=== PATIENT | female | born 1995 | race American Indian/Alaskan Native ===

== ENCOUNTER 2016-08-22 13:56 | Emergency (ER) | payer BC ==
[2016-08-22 14:03] VITALS: BP 135/80
--- NOTE | 2016-08-22 14:38 | Emergency Department Report ---
Entered by GHASSAN PAZ, acting as scribe for ASHWIN RIVAS PA. Chief Complaint: Urogenital-Female Stated Complaint: STOMACH PAIN Time Seen by Provider: 08/22/16 14:11 - HPI History of Present Illness: 21 y/o female presents c/o pressure-like abd pain and vaginal spotting this morning at 0130am. Pt notes she had three positive tests. LMP 07/26/16. This is pt's first . - ROS Review of Systems: as noted in HPI - Exam Vital Signs: Vital Signs 08/22/16 13:59 Temperature 98.3 F Pulse Rate 76 Respiratory 18 Rate Blood Pressure 135/80 O2 Sat by Pulse 100 Oximetry Physical Exam: General: 21 y/o female in no acute distress. Well-developed, well-nourished. CV: Regular rate and rhythm. No murmurs rubs or gallops. Lungs: Clear to auscultation bilaterally. Abdomen: mild pelvic tenderness. No guarding or rebound tenderness. Normal bowel sounds. Mini Neuro: Alert and oriented 3. MSE screening note: Focused history and physical exam performed. Due to findings the following was ordered:UA and HCG quantitative test ED Disposition for MSE Condition: Stable This documentation as recorded by the scribe,GHASSAN PAZ,accurately reflects the service I personally performed and the decisions made by ROB singh FABIOLA N, PA.
[2016-08-22 15:07] LABS: Bilirubin,Urine NEG (Negative); Blood,Urine NEG (Negative); Ketones,Urine NEG (Negative); Leukocyte Esterase,Urine NEG (Negative); Mucus,Urine FEW /HPF; Nitrite,Urine NEG (Negative); Urobilinogen,Urine < 2.0 mg/dL (<2.0)
--- NOTE | 2016-08-22 15:33 | Emergency Department Report ---
HPI - General Chief Complaint: Urogenital-Female Time Seen by Provider: 08/22/16 14:39 - HPI HPI: 21-year-old -Polish female comes in for abdominal cramping and vaginal spotting for one day. Patient reports that she's had 3 home positive test. She reports her last menstrual period was 07/26/2016. She has no past medical history currently takes no medications has no known drug allergies. She denies any fever she admits to nausea no vomiting she admits to intermittent cramping and intermittent nausea. Last time she was on control was 2011. ED Past Medical Hx - Past Medical History Previous Medical History?: No - Surgical History Past Surgical History?: Yes Additional Surgical History: tonsillectomy - Social History Smoking Status: Never Smoker Substance Use Type: Alcohol, Marijuana - Medications Home Medications: Home Medications Medication Instructions Recorded Confirmed Last Taken Type Prednisone [predniSONE 10 mg 10 mg PO .TAPER #1 tab.ds.pk 02/10/16 Unknown Rx (6-Day Pack, 21 Tabs)] diphenhydrAMINE [Benadryl CAP] 50 mg PO QHS PRN #15 capsule 02/10/16 Unknown Rx metroNIDAZOLE [Flagyl] 500 mg PO Q12HR #14 tab 08/22/16 Unknown Rx ED Review of Systems ROS: Stated complaint: STOMACH PAIN Other details as noted in HPI Physical Exam - Physical Exam Vital Signs: Vital Signs 08/22/16 13:59 Temperature 98.3 F Pulse Rate 76 Respiratory 18 Rate Blood Pressure 135/80 O2 Sat by Pulse 100 Oximetry Physical Exam: GENERAL: Alert and oriented x3, no apparent distress, Normal Gait, atraumatic. HEAD: Head is normocephalic and a-traumatic. EYES: Extra ocular muscles are intact. Pupils are equal, round, and reactive to light and accommodation. EARS: symetrical, atraumatic, non tender, ear canal clear and moderate cerumen, tympanic membrance non inflamed. gross auditory nml bilaterally. NOSE: Nose symetrical, Nontender,Nares appeared normal. MOUTH:Mouth is well hydrated and without lesions. Tonsils nonerythematous or swollen, Uvula midline, Tongue not elevated. Mucous membranes are moist. Posterior pharynx clear, no exudate or lesions. Patent airways. NECK: Supple. Non edematous, No carotid bruits. No lymphadenopathy or thyromegaly. LUNGS: Symetrical with respiration, No wheezing, no rales or crackles, CTAB. HEART: S1, S2 present, regular rate and rhythm without murmur, no rubs, no gallops. ABDOMEN: No organomegaly was noted,Positive bowel sounds, soft, and non- distended. . Nontender to palpation on all Quadrants, NO CVA tenderness. GENITOURINARY: External genitalia without erythema, exudate or discharge. Vaginal vault is without discharge. Cervix is of normal color without lesion. Cervical os is closed. No bleeding noted. Uterus is noted to be of normal size and nontender. No cervical motion tenderness. No masses are palpated. The adnexa are without masses or tenderness. EXTREMITIES/MUSCULOSKELETAL: No cyanosis, clubbing, rash, lesions or edema. Full ROM bilaterally. UE/LE Pulses 2+ bilaterally. LE and UE 5+ strength bilaterally NEUROLOGIC: No focal Deficit, Cranial nerves II through XII are grossly intact. No loss of sensation, No facial droop, Negative rhomberg. PSYCHIATRIC: Mood is congruent with affect, denies suicidal or homicidal ideations. SKIN: Warm and dry, No lesions, No ulceration or induration present ED Course Vital Signs 08/22/16 13:59 Temperature 98.3 F Pulse Rate 76 Respiratory 18 Rate Blood Pressure 135/80 O2 Sat by Pulse 100 Oximetry Critical care attestation.: If time is entered above; I have spent that time in minutes in the direct care of this critically ill patient, excluding procedure time. ED Disposition Clinical Impression: Bacterial vaginosis Disposition: DISCHARGED TO HOME OR SELFCARE Is pt being admited?: No Does the pt Need Aspirin: No Condition: Stable Instructions: Bacterial Vaginosis (ED) Additional Instructions: Please follow up with her primary care provider if you do not have to cycle this month. You can return to the emergency room to have a repeat test. Prescriptions: metroNIDAZOLE [Flagyl] 500 mg PO Q12HR #14 tab Referrals: PRIMARY CARE, [Primary Care Provider] - 3-5 Days Forms: STI Treatment and Prevention, Work/School Release Form(ED)
[2016-08-22] MEDS ORDERED: MOTRIN PO ONE (16:33)
== END 2016-08-22 16:44 | disposition home or self-care (01) ==
LOC: ED 13:56
DX: N76.0 Acute vaginitis (principal); F12.10 Cannabis abuse, uncomplicated
CPT/HCPCS: 36415; 81001; 84702; 87210; 87591

== ENCOUNTER 2018-07-27 14:47 | Emergency (ER) | payer BC ==
--- NOTE | 2018-07-27 16:02 | Emergency Department Report ---
HPI - General Chief Complaint: Syncope Time Seen by Provider: 07/27/18 15:43 - HPI HPI: Room 7 The patient is a 23-year-old female presenting with a chief complaint of syncope. The patient states today at work she was sitting down when she began to feel lightheaded and hot. Patient was attempted to stand up but staff helped her to the ground. The patient states she was told she lost consciousness for a few minutes. Patient denies chest pain or shortness of breath. Patient just found out she was approximately one week ago but has not had care yet. Patient denies vaginal bleeding but states she's had intermittent lower abdominal pain past week. Patient was a subjective fever and nasal congestion. Patient is to call for several days has been occasionally productive of yellow or clear sputum. Location: [See above] Duration: 1 Week Quality: [See above] Severity: Moderate Modifying factors: [see above] Context: [see above] Mode of transportation: [not driving] ED Past Medical Hx - Past Medical History Previous Medical History?: No - Surgical History Additional Surgical History: tonsillectomy, herniorrhaphy - Family History Family history: no significant - Social History Smoking Status: Never Smoker Substance Use Type: None (denies illicit drug use) - Medications Home Medications: Home Medications Medication Instructions Recorded Confirmed Last Taken Type Prednisone [predniSONE 10 mg 10 mg PO .TAPER #1 tab.ds.pk 02/10/16 Unknown Rx (6-Day Pack, 21 Tabs)] diphenhydrAMINE [Benadryl CAP] 50 mg PO QHS PRN #15 capsule 02/10/16 Unknown Rx metroNIDAZOLE [Flagyl] 500 mg PO Q12HR #14 tab 08/22/16 Unknown Rx Naproxen 500 mg PO BID PRN #30 tablet 02/21/18 Unknown Rx Metoclopramide [Reglan] 10 mg PO QID PRN #20 tab 07/27/18 Unknown Rx ED Review of Systems ROS: Stated complaint: SYNCOPE Other details as noted in HPI Constitutional: fever (subjective) Eyes: denies: eye pain ENT: congestion Respiratory: no symptoms reported Cardiovascular: denies: chest pain Endocrine: no symptoms reported Gastrointestinal: abdominal pain Genitourinary: denies: abnormal menses Musculoskeletal: denies: back pain Neurological: denies: headache Physical Exam - Physical Exam Vital Signs: Vital Signs 07/27/18 15:13 Temperature 98.7 F Pulse Rate 85 Respiratory 16 Rate Blood Pressure 121/86 [Left] O2 Sat by Pulse 100 Oximetry Physical Exam: GENERAL: The patient is well-developed well-nourished female lying on stretcher not appearing to be in acute distress. [] HEENT: Normocephalic. Atraumatic. Extraocular motions are intact. Patient has moist mucous membranes. NECK: Supple. Trachea midline CHEST/LUNGS: Clear to auscultation. There is no respiratory distress noted. HEART/CARDIOVASCULAR: Regular. There is no tachycardia. There is no gallop rub or murmur. ABDOMEN: Abdomen is soft, nontender. Patient has normal bowel sounds. There is no abdominal distention. SKIN: There is no rash. There is no edema. There is no diaphoresis. NEURO: The patient is awake, alert, and oriented. The patient is cooperative. The patient has no focal neurologic deficits. The patient has normal speech. Cranial nerves II through XII grossly intact, no drift MUSCULOSKELETAL: There is no evidence of acute injury. ED Course Vital Signs 07/27/18 15:13 Temperature 98.7 F Pulse Rate 85 Respiratory 16 Rate Blood Pressure 121/86 [Left] O2 Sat by Pulse 100 Oximetry ED Medical Decision Making - Lab Data Result diagrams: 07/27/18 15:58 07/27/18 15:58 - EKG Data -: EKG Interpreted by Me EKG shows normal: sinus rhythm Rate: normal - EKG Data When compared to previous EKG there are: previous EKG unavailable Interpretation: nonspecific ST-T wave anatoliy (T-wave inversion in lead V3, V4, 3) - Radiology Data Radiology results: report reviewed (VQ scan), image reviewed (chest x-ray, VQ scan) interpreted by me: Chest x-ray-no focal infiltrates, no pneumothorax [facility] [address] [place] [address] Nuclear Medicine Report Signed Patient: IRA WYNNE MR#: [id number] : 1995 Acct:[id number] Age/Sex: 23 / F ADM Date: 07/27/18 Loc: ED Attending Dr: Ordering Physician: PETER RUSSO MD Date of Service: 07/27/18 Procedure(s): NM perfusion only lung scan Accession Number(s): [id number] cc: PETER RUSSO MD PROCEDURE: NM PERFUSION ONLY LUNG SCAN TECHNIQUE: Perfusion only scan obtained after demonstration 1.95 mCi of 99 technetium MMA HISTORY: , syncope COMPARISONS: None FINDINGS: Patient is and has signed consent for test. Limited exam without ventilation images. No gross defects visualized to suggest acute pulmonary embolus. IMPRESSION: Low probability for pulmonary embolus.. This document is electronically signed by Christine Rajan MD., July 27 2018 07:26:16 PM ET Transcribed By: FLORENCE Dictated By: CHRISTINE RAJAN Electronically Authenticated By: CHRISTINE RAJAN Signed Date/Time: 07/27/181927 DD/ 52 TD/TT: 07/27/181854 [facility] [address] [place] [address] Ultrasound Report Signed Patient: IRA WYNNE MR#: [id number] : 1995 Acct:[id number] Age/Sex: 23 / F ADM Date: 07/27/18 Loc: ED Attending Dr: Ordering Physician: PETER RUSSO MD Date of Service: 07/27/18 Procedure(s): US OB <= 14 weeks fetus Accession Number(s): [id number] cc: PETER PADILLA MD PROCEDURE: US OB <= 14 WEEKS FETUS TECHNIQUE: Obstetrical ultrasound HISTORY: , intermittent lower abdominal pain COMPARISONS: FINDINGS: . There is a gestational sac within the uterus measuring 1.0 cm by sac size corresponding to estimated gestational age 5 weeks 5 days. There is a yolk sac identified. No pole identified at this time Minimal free fluid noted in the cul-de-sac Right ovary 4.8 x 1.8 x 1.8 cm. Left ovary is 2.9 x 1.4 x 1.3 cm. No abnormal adnexal mass identified. IMPRESSION: Gestational sac and yolk sac within the uterus likely reflecting very early IUP. Continued follow-up recommended. This document is electronically signed by Eduardo Rice MD., July 27 2018 09:56:13 PM ET Transcribed By: SAPNA Dictated By: BECKI RICE MD Electronically Authenticated By: BECKI RICE MD Signed Date/Time: 07/27/182157 DD/ 14 TD/TT: 07/27/182015 - Differential Diagnosis vasovagal syncope, dehydration, symptomatic anemia, PE Critical care attestation.: If time is entered above; I have spent that time in minutes in the direct care of this critically ill patient, excluding procedure time. ED Disposition Clinical Impression: Syncope, Dehydration, , Hypokalemia Disposition: - TO HOME OR SELFCARE Is pt being admited?: No Does the pt Need Aspirin: No Condition: Stable Instructions: Syncope (ED) Additional Instructions: Return to the emergency department immediately should you develop worsening symptoms, fever, inability to tolerate food or liquid or any other concerns. Prescriptions: Metoclopramide [Reglan] 10 mg PO QID PRN #20 tab PRN Reason: Nausea Referrals: KATHLEEN MOISE MD [Primary Care Provider] - 3-5 Days CHANO LANDA MD [Staff Physician] - 3-5 Days (Dr. Landa is an SYSTEM DEVELOPMENT ENGINEER. Please follow up with her or your own SYSTEM DEVELOPMENT ENGINEER for further evaluation)
[2018-07-27 16:17] LABS: Basophils % (Auto) 0.6 % (0.0-1.8); Eosinophils % (Auto) 0.1 % (0.0-4.3); Hematocrit 35.2 % (30.3-42.9); Lymphocytes # (Auto) 0.8 K/mm3 (1.2-5.4); Lymphocytes % (Auto) 12.3 % (13.4-35.0); Mean Corpuscular HGB Conc 34 % (30-34); Mean Corpuscular Volume 92 fl (79-97); Monocytes # (Auto) 0.9 K/mm3 (0.0-0.8); Monocytes % (Auto) 13.6 % (0.0-7.3); Platelet Count 228 K/mm3 (140-440); Red Blood Count 3.81 M/mm3 (3.65-5.03); Red Cell Distribution Width 13.3 % (13.2-15.2)
[2018-07-27 16:32] LABS: Alanine Aminotransferase 8 units/L (7-56); Albumin 3.7 g/dL (3.9-5); BUN/Creatinine Ratio 11; Blood Urea Nitrogen 8 mg/dL (7-17); Calcium 8.1 mg/dL (8.4-10.2); Hemolysis Index 1
[2018-07-27 16:37] LABS: Creatine Kinase MB < 1.0 ng/mL (0.0-4.0)
[2018-07-27] MEDS ORDERED: NACL 0.9% 1000 ML 1,000 ML IV ONE (17:01)
[2018-07-27 17:49] LABS: Bilirubin,Urine NEG (Negative); Blood,Urine NEG (Negative); Color,Urine Yellow (Yellow); Mucus,Urine 2+ /HPF; Urobilinogen,Urine < 2.0 mg/dL (<2.0)
[2018-07-27 17:57] LABS: Amphetamine Screen,Urine PRESUMPTIVE NEGATIVE; Benzodiazepines Screen,Urine PRESUMPTIVE NEGATIVE; Cocaine Screen,Urine PRESUMPTIVE NEGATIVE; Methadone Screen,Urine PRESUMPTIVE NEGATIVE; Opiate Screen,Urine PRESUMPTIVE NEGATIVE
[2018-07-27 18:30] LABS: Cannabinoid Screen,Urine PRESUMPTIVE POSITIVE
--- NOTE | 2018-07-27 19:28 | Nuclear Medicine Report ---
PROCEDURE: NM PERFUSION ONLY LUNG SCAN TECHNIQUE: Perfusion only scan obtained after demonstration 1.95 mCi of 99 technetium MMA HISTORY: , syncope COMPARISONS: None FINDINGS: Patient is and has signed consent for test. Limited exam without ventilation images. No gross defects visualized to suggest acute pulmonary embolus. IMPRESSION: Low probability for pulmonary embolus.. This document is electronically signed by Ayad Jacobson MD., July 27 2018 07:26:16 PM ET
[2018-07-27] MEDS ORDERED: K-DUR PO ONE ×2 (19:31→21:53)
[2018-07-27] MEDS ORDERED: REGLAN IV ONE (19:35)
--- NOTE | 2018-07-27 20:33 | XRay Report ---
PROCEDURE: XR CHEST 1V AP TECHNIQUE: Single AP view of the chest HISTORY: cough, COMPARISONS: FINDINGS: Cardiac and mediastinal contours are unremarkable. No focal pulmonary infiltrate identified. No pleur al fluid collection seen. Pulmonary vasculature is unremarkable IMPRESSION: Negative single view chest. This document is electronically signed by Eduardo Lan MD., July 27 2018 08:31:45 PM ET
--- NOTE | 2018-07-27 21:58 | Ultrasound Report ---
PROCEDURE: US OB <= 14 WEEKS FETUS TECHNIQUE: Obstetrical ultrasound HISTORY: , intermittent lower abdominal pain COMPARISONS: FINDINGS: . There is a gestational sac within the uterus measuring 1.0 cm by sac size corresponding to estimate d gestational age 5 weeks 5 days. There is a yolk sac identified. No pole identified at this time Minimal free fluid noted in the cul-de-sac Right ovary 4.8 x 1.8 x 1.8 cm. Left ovary is 2.9 x 1.4 x 1.3 cm. No abnormal adnexal mass identified. IMPRESSION: Gestational sac and yolk sac within the uterus likely reflecting very early IUP. Continued follow-up recommended. This document is electronically signed by Eduardo Lan MD., July 27 2018 09:56:13 PM ET
[2018-07-27 22:51] VITALS: BP 125/76
--- NOTE | 2018-07-28 16:24 | Ultrasound Report ---
PROCEDURE: US OB TRANSVAGINAL TECHNIQUE: Ultrasound obstetrical transvaginal HISTORY: pain COMPARISONS: FINDINGS: There is a gestational sac within the uterus mean sac diameter 1.02 cm by sac diameter corresponding to estimated gestational age of 5 weeks 5 days. There is a yolk sac identified. No pole identif ied at this time Minimal free fluid noted in the cul-de-sac. Right ovary is 4.8 x 1.8 x 1.8 cm. Left ovary is 2.9 x 1.4 x 1.3 cm. Uterus is 7.9 cm in length IMPRESSION: Gestational sac and yolk sac identified within the uterus. Likely very early IUP. Continued follow-up recommended. pole not identified at this time This document is electronically signed by Eduardo Lan MD., July 28 2018 04:22:34 PM ET
== END 2018-07-27 22:51 | disposition home or self-care (01) ==
LOC: ED 14:47
DX: O26.891 Other specified pregnancy related conditions, first trimester (principal); R55 Syncope and collapse; E86.0 Dehydration; R42 Dizziness and giddiness; E87.6 Hypokalemia; Z90.89 Acquired absence of other organs; Z3A.01 Less than 8 weeks gestation of pregnancy
CPT/HCPCS: 36415; 71045; 76801; 76817; 78580; 80053; 80307; 81001; 82550; 82553; 84484; 84702; 85025; 85379; 93005; 93010; 96360; 96361; 99285; A9540; J7030

== ENCOUNTER 2018-12-03 15:50 | Emergency (ER) | payer BC ==
--- NOTE | 2018-12-03 16:01 | Event Note ---
ED Screening Note ED Screening Note: pt is 24 weeks feeling SOB for a couple of days no CP no pleuritic CP SODA CLERK: [facility] states she went to her OB today and was advised to be seen in the ED for SOB no cough no fever no unilateral LE edema no recent long car plane ride no recent surgery /P:0/A:2 no PMHx no allergies to meds smoker prior to occ drinker prior to +marijuana prior to This initial assessment/diagnostic orders/clinical plan/treatment(s) is/are subject to change based on patients health status, clinical progression and re- assessment by fellow clinical providers in the ED. Further treatment and workup at subsequent clinical providers discretion. Patient/guardian urged not to elope from the ED as their condition may be serious if not clinically assessed and managed. Initial orders include: labs, EKG
[2018-12-03 16:27] LABS: Basophils # (Auto) 0.1 K/mm3 (0.0-0.1); Basophils % (Auto) 0.6 % (0.0-1.8); Eosinophils # (Auto) 0.1 K/mm3 (0.0-0.4); Eosinophils % (Auto) 0.7 % (0.0-4.3); Hematocrit 35.6 % (30.3-42.9); Lymphocytes # (Auto) 1.1 K/mm3 (1.2-5.4); Lymphocytes % (Auto) 9.7 % (13.4-35.0); Mean Corpuscular HGB Conc 34 % (30-34); Mean Corpuscular Volume 94 fl (79-97); Monocytes # (Auto) 0.9 K/mm3 (0.0-0.8); Monocytes % (Auto) 8.1 % (0.0-7.3); Platelet Count 273 K/mm3 (140-440); Red Blood Count 3.78 M/mm3 (3.65-5.03); Red Cell Distribution Width 13.3 % (13.2-15.2)
[2018-12-03 16:33] LABS: INR 1.01 (0.87-1.13)
[2018-12-03 16:34] LABS: Partial Thromboplastin Time 22.6 Sec. (24.2-36.6)
[2018-12-03 16:48] LABS: Alanine Aminotransferase 13 units/L (7-56); Albumin 3.7 g/dL (3.9-5); BUN/Creatinine Ratio 12; Blood Urea Nitrogen 6 mg/dL (7-17); Calcium 9.1 mg/dL (8.4-10.2); Hemolysis Index 3
--- NOTE | 2018-12-03 17:30 | Emergency Department Report ---
ED Shortness of Breath HPI - General Chief Complaint: Dyspnea/Respdistress Stated Complaint: SOB/WEAKNESS/FREQUENT NOSE BLEED Time Seen by Provider: 12/03/18 15:58 Source: patient Mode of arrival: Ambulatory Limitations: No Limitations - History of Present Illness Initial Comments: 23-year-old female, 24 weeks , presents to ED with shortness of breath 3 days. Patient reports dyspnea on exertion, denies chest pain. Patient reports bilateral ankle swelling. Patient sent to ED by CUSTOMER SERVICE OFFICER. OB: [facility] Complaint: shortness of breath -: days(s) (3) Consistency: intermittent Improves With: rest Worsens With: movement - Related Data Previous Rx's Medication Instructions Recorded Last Taken Type Prednisone [predniSONE 10 mg 10 mg PO .TAPER #1 tab.ds.pk 02/10/16 Unknown Rx (6-Day Pack, 21 Tabs)] diphenhydrAMINE [Benadryl CAP] 50 mg PO QHS PRN #15 capsule 02/10/16 Unknown Rx metroNIDAZOLE [Flagyl] 500 mg PO Q12HR #14 tab 08/22/16 Unknown Rx Naproxen 500 mg PO BID PRN #30 tablet 02/21/18 Unknown Rx Metoclopramide [Reglan] 10 mg PO QID PRN #20 tab 07/27/18 Unknown Rx Allergies Allergy/AdvReac Type Severity Reaction Status Date / Time No Known Allergies Allergy Verified 12/03/18 17:42 ED Review of Systems ROS: Stated complaint: SOB/WEAKNESS/FREQUENT NOSE BLEED Other details as noted in HPI Comment: All other systems reviewed and negative Constitutional: denies: chills, fever Respiratory: denies: cough Cardiovascular: denies: chest pain Gastrointestinal: denies: abdominal pain Musculoskeletal: other (reports bilateral ankle swelling) ED Past Medical Hx - Surgical History Additional Surgical History: tonsillectomy, herniorrhaphy - Social History Smoking Status: Never Smoker Substance Use Type: None (denies illicit drug use) - Medications Home Medications: Home Medications Medication Instructions Recorded Confirmed Last Taken Type Prednisone [predniSONE 10 mg 10 mg PO .TAPER #1 tab.ds.pk 02/10/16 Unknown Rx (6-Day Pack, 21 Tabs)] diphenhydrAMINE [Benadryl CAP] 50 mg PO QHS PRN #15 capsule 02/10/16 Unknown Rx metroNIDAZOLE [Flagyl] 500 mg PO Q12HR #14 tab 08/22/16 Unknown Rx Naproxen 500 mg PO BID PRN #30 tablet 02/21/18 Unknown Rx Metoclopramide [Reglan] 10 mg PO QID PRN #20 tab 07/27/18 Unknown Rx ED Physical Exam - General Limitations: No Limitations General appearance: alert, in no apparent distress - Head Head exam: Present: atraumatic, normocephalic - Eye Eye exam: Present: normal appearance, PERRL, EOMI - ENT ENT exam: Present: mucous membranes moist - Neck Neck exam: Present: normal inspection - Respiratory Respiratory exam: Present: normal lung sounds bilaterally. Absent: respiratory distress - Cardiovascular Cardiovascular Exam: Present: normal rhythm, tachycardia - GI/Abdominal GI/Abdominal exam: Present: soft. Absent: distended, tenderness - Extremities Exam Extremities exam: Present: pedal edema. Absent: calf tenderness - Neurological Exam Neurological exam: Present: alert, oriented X3 - Psychiatric Psychiatric exam: Present: normal affect, normal mood - Skin Skin exam: Present: warm, dry, intact, normal color ED Course Vital Signs 12/03/18 17:40 Temperature 99.0 F Pulse Rate 112 H Respiratory 18 Rate Blood Pressure 122/64 O2 Sat by Pulse 98 Oximetry ED Medical Decision Making - Lab Data Result diagrams: 12/03/18 16:10 12/03/18 16:10 - EKG Data -: EKG Interpreted by Al EKG shows normal: sinus rhythm, axis, intervals, QRS complexes, ST-T waves Rate: normal - EKG Data Interpretation: no acute changes - Radiology Data Radiology results: report reviewed, image reviewed - Medical Decision Making - pt reports dyspnea for several days - pt in no resp distress - O2 sats normal - lungs clear - pt , D-dimer elvated - CXR normal, CTA negative for PE or any other abnormality - return precautions given - outpt f/u advised - Differential Diagnosis pulm edema, PE, pneumonia Critical care attestation.: If time is entered above; I have spent that time in minutes in the direct care of this critically ill patient, excluding procedure time. ED Disposition Clinical Impression: Dyspnea Disposition: DC-01 TO HOME OR SELFCARE Is pt being admited?: No Condition: Stable Instructions: Dyspnea (ED) Referrals: KATHLEEN MOISE MD [Primary Care Provider] - 3-5 Days PRIMARY CARE, [Referring] - 3-5 Days Time of Disposition: 20:26
--- NOTE | 2018-12-03 18:08 | XRay Report ---
CHEST 1 VIEW INDICATION: sob. COMPARISON: None. FINDINGS: Support devices: None. Heart: Within normal limits. Lungs/Pleura: No acute air space or interstitial disease. Additional findings: None. IMPRESSION: No acute abnormality. Signer Name: Burak Grewal MD Signed: 12/03/2018 6:04 PM Workstation Name: [id number]
--- NOTE | 2018-12-03 19:06 | Cat Scan Report ---
CTA CHEST WITH IV CONTRAST INDICATION / CLINICAL INFORMATION: Shortness of breath. TECHNIQUE: Axial CT images were obtained through the chest after injection of 100 mL Omnipaque 350 IV contrast. 3 plane MIP and/or 3D reconstructions were produced. All CT scans at this location are performed usin g CT dose reduction for CARLOS ALBERTORA by means of automated exposure control. COMPARISON: Same-day chest radiograph FINDINGS: PULMONARY ARTERIES: No pulmonary emboli. THORACIC AORTA: No significant abnormality. HEART: No significant abnormality. CORONARY ARTERIES: No significant calcification. PLEURA: No pleural effusion. No pneumothorax. LYMPH NODES: No significant adenopathy. LUNGS: No acute air space or interstitial disease. ADDITIONAL FINDINGS: None. UPPER ABDOMEN: No acute findings. SKELETAL STRUCTURES: No significant osseous abnormality. IMPRESSION: 1. No CT evidence for pulmonary embolism. 2. No acute findings. Signer Name: Terrence Lazaro MD Signed: 12/03/2018 7:01 PM Workstation Name: [id number]
[2018-12-03 21:30] VITALS: BP 113/76
== END 2018-12-03 20:47 | disposition home or self-care (01) ==
LOC: ED 15:50
DX: R06.00 Dyspnea, unspecified (principal); M25.471 Effusion, right ankle; M25.472 Effusion, left ankle; Z79.899 Other long term (current) drug therapy
CPT/HCPCS: 36415; 71045; 71275; 80053; 83880; 84484; 85025; 85379; 85610; 85730; 93005; 93010; 99284; Q9967

== ENCOUNTER 2019-01-20 15:24 | Outpatient (CLI) | payer BC ==
[2019-01-20 16:09] VITALS: BP 110/70
[2019-01-20 16:29] LABS: Bilirubin,Urine NEG (Negative); Blood,Urine NEG (Negative); Color,Urine Yellow (Yellow); Mucus,Urine FEW /HPF; Protein,Urine <15 mg/dL mg/dL (Negative); Urobilinogen,Urine < 2.0 mg/dL (<2.0)
[2019-01-20] MEDS ORDERED: LACTATED RINGERS 500 ML IV ONE (17:16)
[2019-01-20] MEDS ORDERED: LACTATED RINGERS 1,000 ML IV ONE (17:19)
[2019-01-20] MEDS ORDERED: BRETHINE SUB-Q ONE (17:40)
== END 2019-01-20 19:13 | disposition home or self-care (01) ==
LOC: TRG 15:24
PROVIDERS: ATTEND Obstetrics & Gynecology
DX: O26.893 Other specified pregnancy related conditions, third trimester (principal); R10.30 Lower abdominal pain, unspecified; M54.6 Pain in thoracic spine; O47.03 False labor before 37 completed weeks of gestation, third trimester; Z3A.31 31 weeks gestation of pregnancy
CPT/HCPCS: 59025; 81001; 96360; 96361; 96372; J3105; J7120

== ENCOUNTER 2019-03-16 16:38 | Outpatient (CLI) | payer BC ==
[2019-03-16 19:36] VITALS: BP 123/76
--- NOTE | 2019-03-16 20:08 | Ultrasound Report ---
ULTRASOUND OBSTETRIC INDICATION / CLINICAL INFORMATION: BPP. JACOB Clinical Gestational Age (GA): 38 weeks 6 days TECHNIQUE: Transabdominal. COMPARISON: None available. FINDINGS: There is a single intrauterine . Heart Rate: 169 beats per minute. Position: cephalic. Amniotic Fluid Volume: normal Amniotic Fluid Index (JACOB) in cm (if calculated): 10.6. BPP 8/8. IMPRESSION: 1. Single, living intrauterine with JACOB 10.6 cm and biophysical profile score 8/8. Heart ra te 169 bpm. Signer Name: Terrence Lazaro MD Signed: 03/16/2019 8:04 PM Workstation Name: [id number]
--- NOTE | 2019-03-17 07:47 | Progress Note ---
Assessment and Plan A: at 38 6/7 weeks gestation. Category 1 heart rate tracing. BPP 8/8. JACOB normal. Not in active labor. No evidence of membrane rupture. P: Advised patient re: daily movement counting. Advised patient re: signs of labor. Advised patient to follow up at [facility] on 03/17/19 at 9:00 AM for recheck. Warning signs discussed with patient. Subjective - Subjective Date of service: 03/16/19 Principal diagnosis: at 38 weeks, 6 days; R/O labor Interval history: at 38 6/7 weeks, first . Patient comes to rule out labor. Patient states that on Sunday and Sunday this weekend she thought something might be leaking from vagina. She states she had had IC on Sunday. Patient denies vaginal bleeding. She states she did soak clothes. Patient reports slightly decreased movement from previously but states she has not been performing daily movement counts. She denies any complications with this . Patient states patient is afebrile and vital signs have been normal. Patient reports: contractions, no vaginal bleeding Objective - Exam Narrative Exam: BPP 8/8. JACOB 10.6 cm. SSE: no pooling, negative nitrazine, negative fern. Thick white vaginal discharge. Abdomen: Present: normal appearance, soft. Absent: distention, tenderness, guarding, rigidity Uterus: Present: normal, fundal height above umbilicus. Absent: tenderness FHR: category 1 Uterine Contraction Monitor Mode: External Cervical Dilatation: 1 Cervical Effacement Percentage: 30 station: -4 Uterine Contraction Pattern: Irregular Uterine Contraction Intensity: Mild Extremities: normal
== END 2019-03-16 19:55 | disposition home or self-care (01) ==
LOC: TRG 16:38
PROVIDERS: ATTEND Obstetrics & Gynecology
DX: O47.1 False labor at or after 37 completed weeks of gestation (principal); Z3A.38 38 weeks gestation of pregnancy
CPT/HCPCS: 76815; 76819

== ENCOUNTER 2019-03-23 06:04 | Inpatient (IN) | payer BC ==
[2019-03-23] MEDS ORDERED: LACTATED RINGERS 1,000 ML IV ONE (06:43)
[2019-03-23] MEDS ORDERED: ePHEDrine SULFATE 50 MG/1 ML INJ IV PRN ×2 (06:58→12:56)
[2019-03-23] MEDS ORDERED: LIDOCAINE (2%) 20 MG/1 ML VIAL 20 ML MDV INFILTRATI ONE (06:58)
[2019-03-23] MEDS ORDERED: TERBUTALINE 1 MG/1 ML INJ SUB-Q PRN (06:58)
[2019-03-23] MEDS ORDERED: OXYTOCIN DRIP 30 UNITS/500 ML BAG IV SCH (07:00)
--- NOTE | 2019-03-23 07:14 | History and Physical Report ---
History of Present Illness Date of examination: 03/23/19 Date of admission: 03/23/2019 Chief complaint: Contractions and leaking of water. History of present illness: 23 year old presents to L&D with complaint of leaking of clear fluid from vagina since 10 AM yesterday and contractions beginning this morning at 4 AM. Patient reports active movement. Patient reports small amount of bloody show. Patient received care at [facility] and records are available. LMP 07/30/18. EDC 03/24/2019 (based on ultrasound). significant for the following: Vitamin D deficiency (supplemented with Vitamin D), + HR HPV. labs are as follows: A+, antibody screen negative, rubella immune, hepatitis B surface antigen negative, HIV negative, RPR nonreactive, pap negative/+ HPV, hemoglobin electrophoresis AA, gonorrhea negative, chlamydia negative, trichomonas negative, GBS negative, varicella immune, quad screen negative, 1 hour sugar test 96. Patient denies headache, visual disturbance, nausea or vomiting, or epigastric pain. Past History Past Medical History: no pertinent history Past Surgical History: tonsillectomy, other (right inguinal hernia repair (2018)) [employer] MACHINE OPERATOR History: denies: abnormal PAP smear, chlamydia, gonorrhea, hepatitis B, hepatitis C, herpes, HIV, syphilis, trichomonas Family/Genetic History: hypertension Social history: single, full code. denies: smoking, alcohol abuse, prescription drug abuse, IV drug use - Obstetrical History Expected Date of Delivery: 03/24/19 Actual Gestation: 39 Week(s) 6 Day(s) : 3 Para: 0 Hx # Term Pregnancies: 0 Number of Pregnancies: 0 Spontaneous Abortions: 2 Induced : 0 Number of Living Children: 0 Medications and Allergies Allergies Allergy/AdvReac Type Severity Reaction Status Date / Time No Known Allergies Allergy Verified 12/03/18 17:42 Home Medications Medication Instructions Recorded Confirmed Last Taken Type Prednisone [predniSONE 10 mg 10 mg PO .TAPER #1 tab.ds.pk 02/10/16 Unknown Rx (6-Day Pack, 21 Tabs)] diphenhydrAMINE [Benadryl CAP] 50 mg PO QHS PRN #15 capsule 02/10/16 Unknown Rx metroNIDAZOLE [Flagyl] 500 mg PO Q12HR #14 tab 08/22/16 Unknown Rx Naproxen 500 mg PO BID PRN #30 tablet 02/21/18 Unknown Rx Metoclopramide [Reglan] 10 mg PO QID PRN #20 tab 07/27/18 Unknown Rx Active Meds: Active Medications Ephedrine Sulfate (Ephedrine Sulfate) 10 mg IV Q2M PRN PRN Reason: Hypotension Fentanyl (Sublimaze) 100 mcg IV Q2H PRN PRN Reason: Labor Pain Lactated Ringer's (Lactated Ringers) 1,000 mls @ 999 mls/hr IV BOLUS ONE Stop: 03/23/19 07:43 Oxytocin/Sodium Chloride (Pitocin/Ns 20 Unit/1000ml Drip) 20 units in 1,000 mls @ 125 mls/hr IV DIRECT EDIN Oxytocin/Sodium Chloride (Pitocin/Ns 30 Unit/500ml) 30 units in 500 mls @ 0 mls/hr IV TITR EDIN; Protocol Lactated Ringer's (Lactated Ringers) 1,000 mls @ 125 mls/hr IV DIRECT EDIN Lidocaine (Xylocaine 2%) 20 ml INFILTRATI ONCE ONE Stop: 03/23/19 06:59 Terbutaline Sulfate (Brethine) 0.25 mg SUB-Q ONCE PRN PRN Reason: Hyperstimulation/Hypertonicity Review of Systems All systems: negative (leaking of clear fluid from vagina since 10 AM on 03/22/19 and contractions since 4 AM today) - Vital Signs Vital signs: Vital Signs Pulse BP 100 H 137/87 03/23/19 06:18 03/23/19 06:18 Temp Pulse Resp BP Pulse Ox 85 137/87 98 03/23/19 06:56 03/23/19 06:18 03/23/19 06:56 - Physical Exam Abdomen: Positive: normal appearance, soft. Negative: distention, tenderness, guarding, rigidity Genitourinary (Female): Positive: normal external genitalia, normal perenium. Negative: perineal/vulvar lesions (no lesions noted on careful exam with bright light upon admission) Uterus: Positive: enlarged (S=D) Anus/Rectum: Positive: normal perianal skin Extremities: Positive: normal. Negative: tenderness, edema - Obstetrical FHR: category 2 Uterine Contraction Monitor Mode: External Cervical Dilatation: 2 Cervical Effacement Percentage: 95 station: -3 Uterine Contraction Pattern: Irregular Uterine Contraction Intensity: Moderate Results Result Diagrams: 03/23/19 06:58 All other labs normal. Assessment and Plan A: at 39 weeks, 6 days gestation. Spontaneous rupture of membranes. Not in active labor yet. GBS negative. BP elevation. P: Admit. Continuous EFM. Preeclamptic labs. Pitocin augmentation of labor. Discussed with patient risks and benefits of Pitocin augmentation of labor. Patient consented to Pitocin augmentation of labor.
[2019-03-23 07:22] LABS: Hematocrit 37.6 % (30.3-42.9); Hemoglobin 12.5 gm/dl (10.1-14.3); Mean Corpuscular HGB Conc 33 % (30-34); Mean Corpuscular Volume 94 fl (79-97); Platelet Count 285 K/mm3 (140-440); Red Blood Count 4.01 M/mm3 (3.65-5.03); Red Cell Distribution Width 14.3 % (13.2-15.2)
[2019-03-23] MEDS ORDERED: AMPICILLIN/NS 2 GM/100 ML 2 GM/100 ML BAG IV ONE (07:23)
[2019-03-23] MEDS: LACTATED RINGERS 1,000 ML IV SCH ×2 (08:10→11:08)
[2019-03-23] MEDS ORDERED: ONDANSETRON 4 MG/2 ML INJ IV PRN (08:23)
[2019-03-23] MEDS ORDERED: ONDANSETRON 4 MG/2 ML INJ ONE (08:25)
[2019-03-23] MEDS ORDERED: MAGNESIUM SULFATE 4 GM/100 ML BAG IV ONE (08:28)
[2019-03-23] MEDS: fentaNYL 100 MCG/2 ML INJ IV PRN ×2 (08:33→10:15)
--- NOTE | 2019-03-23 08:36 | Event Note ---
Date: 03/23/19 BPs elevated, some in severe range. Preeclamptic labs pending. Consulted with Dr. Chung re: patient and informed him of elevated blood pressures: recommended magnesium sulfate. Discussed with patient and family.
[2019-03-23] MEDS ORDERED: hydrALAZINE 20 MG/1 ML INJ IV ONE (08:45)
[2019-03-23 09:06] LABS: Alanine Aminotransferase 13 units/L (7-56); Albumin 3.3 g/dL (3.9-5); BUN/Creatinine Ratio 12; Blood Urea Nitrogen 6 mg/dL (7-17); Hemolysis Index 3
[2019-03-23] MEDS: MAGNESIUM SULFATE 40GM/1000ML 40 GM/1,000 ML BAG IV SCH (10:30)
[2019-03-23] MEDS ORDERED: AMPICILLIN/NS 1 GM/50 ML 1 GM/50 ML BAG IV SCH (11:26)
--- NOTE | 2019-03-23 11:56 | Event Note ---
Date: 03/23/19 Patient requests epidural. SVE /-2.
[2019-03-23] MEDS ORDERED: BUTORPHANOL 2 MG/1 ML INJ IV PRN (12:00)
[2019-03-23] MEDS ORDERED: NALOXONE 2 MG/2 ML INJ IV PRN (12:56)
--- NOTE | 2019-03-23 12:56 | Anesthesia Consultation ---
Anesthesia Consult and Med Hx Date of service: 03/23/19 - Airway Anesthetic Teeth Evaluation: Good ROM Head & Neck: Adequate Mental/Hyoid Distance: Adequate Mallampati Class: Class II Intubation Access Assessment: Good - Pulmonary Exam CTA: Yes - Cardiac Exam Cardiac Exam: RRR - Pre-Operative Health Status ASA Pre-Surgery Classification: ASA2, Emergency Proposed Anesthetic Plan: Epidural - Pulmonary Hx Asthma: No COPD: No Hx Pneumonia: No - Cardiovascular System Hx Hypertension: No - Central Nervous System Hx Seizures: No Hx Psychiatric Problems: No - Endocrine Hx Renal Disease: No Hx End Stage Renal Disease: No Hx Hypothyroidism: No Hx Hyperthyroidism: No - Hematic Hx Anemia: No Hx Sickle Cell Disease: No - Other Systems Hx Alcohol Use: No
[2019-03-23] MEDS ORDERED: fentaNYL-BUPIV 2 MCG/ML-0.125% 200 MCG/100 ML BAG EPIDURAL SCH (13:00)
[2019-03-23] MEDS ORDERED: BUPIVACAINE/PF (0.25%) 2.5 MG/ML 10 ML VIAL INFILTRATI ONE (13:03)
[2019-03-23] MEDS ORDERED: OXYTOCIN 10 UNIT/1 ML INJ ONE (16:20)
[2019-03-23] MEDS ORDERED: WITCH HAZEL/ GLYCERIN PAD TP PRN (16:29)
[2019-03-23] MEDS ORDERED: LANOLIN/ZINC/DIMETHICONE (LANSINOH) 7 GM TP PRN (16:29)
[2019-03-23] MEDS ORDERED: ACETAMINOPHEN 325 MG TAB PO PRN (16:29)
[2019-03-23] MEDS: OXYTOCIN 20 UNIT/1000ML DRIP 20 UNITS/1,000 ML BAG IV SCH ×2 (16:30→18:20)
--- NOTE | 2019-03-23 16:35 | Procedure Note ---
OB Delivery Note - Delivery Date of Delivery: 03/23/19 Surgeon: ERINN JURADO Estimated blood loss: 200cc - Vaginal Delivery presentation: vertex Delivery position: OA Intrapartum events: preeclampsia, other(please specify) (prolonged rupture of membranes) Delivery induction: oxytocin Delivery augmentation: pitocin Delivery monitor: external FHT, external uterine Route of delivery: Delivery placenta: spontaneous Delivery cord: 3 umbilical vessels Episiotomy: none Delivery laceration: none Anesthesia: epidural Delivery comments: Spontaneous vaginal delivery at 16:08 of liveborn female infant weighing 2762 grams over intact perineum with apgars of 8/9. Baby placed skin to skin with mom immediately after . Spontaneous cry and respirations. Baby bulb suctioned and dried with warm towels and blankets. 3 vessel cord double clamped and cut. Spontaneous delivery of intact placenta and membranes by matta mechanism. EBL 200 cc. Fundus firm and midline. Pitocin to IV fluids after delivery of placenta. No lacerations noted. Vaginal sweep negative. Sponge count correct. Mother and baby stable.
[2019-03-23] MEDS ORDERED: OXYTOCIN 10 UNIT/1 ML INJ IM ONE (16:50)
[2019-03-23 19:40] LABS: Bilirubin,Urine NEG (Negative); Blood,Urine NEG (Negative); Color,Urine Colorless (Yellow); Protein,Urine <15 mg/dL mg/dL (Negative); Urobilinogen,Urine < 2.0 mg/dL (<2.0); WBC,Urine < 1.0 /HPF (0.0-6.0)
[2019-03-24 03:59] LABS: Hematocrit 34.1 % (30.3-42.9); Hemoglobin 11.4 gm/dl (10.1-14.3)
--- NOTE | 2019-03-24 05:51 | Post Anesthesia Evaluation ---
- Post Anesthesia Evaluation Patient Participated: Yes Airway Patent: Yes Stable Respiratory Function: Yes Nausea/Vomiting: No Temp > 96.8F: Yes Pain Manageable: Yes Adequeate Hydration: Yes Anesthesia Complications: No Block Receding Appropriately: Yes Patient on Ventilator: No
[2019-03-24] MEDS: MAGNESIUM SULFATE 40GM/1000ML 40 GM/1,000 ML BAG IV SCH (07:44)
--- NOTE | 2019-03-24 13:42 | Progress Note ---
Assessment and Plan , Preeclampsia Continue routine PP care [id number] hours BP's WNL Anthony ESTRELLA Subjective - Subjective Date of service: 03/24/19 Principal diagnosis: , preeclampsia Interval history: Patient doing well AAOx3 tolerating PO no MARTINES, no changes in vision. Baby doing well Patient reports: appetite normal, voiding normally, pain well controlled, flatus, ambulating normally : doing well Objective - Vital Signs Latest vital signs: Vital Signs Temp Pulse Resp BP BP Pulse Ox 03/24/19 13:37 107 H 88 03/24/19 13:34 97 H 98 03/24/19 13:29 94 H 99 03/24/19 13:27 96 H 138/71 03/24/19 13:23 95 H 97 03/24/19 13:19 98 H 98 03/24/19 13:14 99 H 98 03/24/19 13:13 109 H 94 03/24/19 13:09 98 H 95 03/24/19 13:07 106 H 94 03/24/19 13:04 96 H 95 03/24/19 13:02 96 H 93 03/24/19 12:59 92 H 96 03/24/19 12:57 93 H 117/68 03/24/19 12:54 86 97 03/24/19 12:49 94 H 95 03/24/19 12:47 96 H 94 03/24/19 12:44 94 H 95 03/24/19 12:42 96 H 94 03/24/19 12:39 97 H 95 03/24/19 12:36 95 H 94 03/24/19 12:34 94 H 95 03/24/19 12:30 94 H 94 03/24/19 12:29 94 H 96 03/24/19 12:27 96 H 117/69 03/24/19 12:24 98 H 96 03/24/19 12:19 102 H 97 03/24/19 12:14 99 H 98 03/24/19 12:09 98 H 97 03/24/19 12:04 103 H 98 03/24/19 12:00 97.5 F L 102 H 18 121/76 03/24/19 11:59 102 H 97 03/24/19 11:58 95 H 121/76 03/24/19 11:54 108 H 99 03/24/19 11:49 105 H 97 03/24/19 11:46 54 L 94 03/24/19 11:44 96 H 95 03/24/19 11:38 98 H 95 03/24/19 11:34 98 H 96 03/24/19 11:29 101 H 97 03/24/19 11:28 110 H 128/71 03/24/19 11:24 107 H 97 03/24/19 11:19 103 H 98 03/24/19 11:14 106 H 97 03/24/19 11:09 106 H 98 03/24/19 11:03 104 H 98 03/24/19 10:59 104 H 98 03/24/19 10:57 100 H 124/77 03/24/19 10:54 105 H 98 03/24/19 10:49 101 H 98 03/24/19 10:44 99 H 98 03/24/19 10:27 100 H 122/76 03/24/19 09:57 101 H 121/77 03/24/19 09:51 108 H 97 03/24/19 09:46 102 H 97 03/24/19 09:41 104 H 96 03/24/19 09:36 105 H 98 03/24/19 09:31 104 H 98 03/24/19 09:26 105 H 97 03/24/19 09:21 102 H 98 03/24/19 09:16 105 H 98 03/24/19 09:11 106 H 98 03/24/19 09:07 105 H 98 03/24/19 09:01 102 H 98 03/24/19 08:57 103 H 132/82 98 03/24/19 08:52 107 H 99 03/24/19 08:46 102 H 98 03/24/19 08:41 102 H 99 03/24/19 08:36 98 H 98 03/24/19 08:32 95 H 98 03/24/19 08:28 96 H 122/73 03/24/19 08:26 99 H 97 03/24/19 08:22 103 H 97 03/24/19 08:16 99 H 98 03/24/19 08:11 96 H 97 03/24/19 08:06 106 H 98 03/24/19 08:02 94 H 98 03/24/19 07:56 96 H 97 03/24/19 07:51 97 H 97 03/24/19 07:46 93 H 97 03/24/19 07:43 98.1 F 03/24/19 07:42 92 H 121/84 03/24/19 07:41 99 H 98 03/24/19 07:36 97 H 98 03/24/19 07:31 96 H 98 03/24/19 07:27 96 H 117/75 03/24/19 07:26 100 H 98 03/24/19 07:21 94 H 98 03/24/19 07:16 90 97 03/24/19 07:11 92 H 99 03/24/19 07:06 92 H 98 03/24/19 07:01 93 H 98 03/24/19 06:57 103 H 127/80 03/24/19 06:56 92 H 98 03/24/19 06:52 91 H 94 03/24/19 06:51 91 H 95 03/24/19 06:46 91 H 95 03/24/19 06:43 92 H 94 03/24/19 06:41 90 95 03/24/19 06:38 90 93 03/24/19 06:36 90 95 03/24/19 06:32 92 H 94 03/24/19 06:31 91 H 95 03/24/19 06:27 86 115/72 03/24/19 06:26 90 95 03/24/19 06:21 90 95 03/24/19 06:20 90 94 03/24/19 06:16 90 95 03/24/19 06:15 88 94 03/24/19 06:11 88 95 03/24/19 06:10 92 H 94 03/24/19 06:06 91 H 95 03/24/19 06:01 91 H 96 03/24/19 05:57 92 H 121/72 03/24/19 05:56 92 H 97 03/24/19 05:51 92 H 96 03/24/19 05:46 93 H 97 03/24/19 05:44 62 83 L 03/24/19 05:41 99 H 97 03/24/19 05:36 99 H 97 03/24/19 05:31 104 H 96 03/24/19 05:28 100 H 128/79 03/24/19 05:26 102 H 97 03/24/19 05:21 101 H 98 03/24/19 05:16 98 H 98 03/24/19 05:11 98 H 98 03/24/19 05:06 92 H 97 03/24/19 05:01 91 H 97 03/24/19 04:58 90 122/76 03/24/19 04:56 101 H 98 03/24/19 04:51 98 H 98 03/24/19 04:46 115 H 97 03/24/19 04:41 103 H 97 03/24/19 04:36 91 H 95 03/24/19 04:35 85 94 03/24/19 04:31 91 H 94 03/24/19 04:28 91 H 107/62 03/24/19 04:26 92 H 94 03/24/19 04:21 92 H 94 03/24/19 04:16 92 H 93 03/24/19 04:11 93 H 93 03/24/19 04:06 95 H 94 03/24/19 04:02 92 H 94 03/24/19 04:01 93 H 93 03/24/19 03:58 93 H 107/62 03/24/19 03:56 96 H 93 03/24/19 03:51 99 H 92 03/24/19 03:46 98 H 95 03/24/19 03:43 104 H 94 03/24/19 03:41 104 H 96 03/24/19 03:36 101 H 93 03/24/19 03:31 99 H 93 03/24/19 03:27 100 H 115/61 03/24/19 03:26 101 H 93 03/24/19 03:21 99 H 94 03/24/19 03:20 104 H 93 03/24/19 03:16 101 H 94 03/24/19 03:14 105 H 94 03/24/19 03:11 107 H 96 03/24/19 03:06 102 H 95 03/24/19 03:01 101 H 97 03/24/19 02:58 97 H 111/66 94 03/24/19 02:56 99 H 95 03/24/19 02:51 104 H 97 03/24/19 02:46 96 H 95 03/24/19 02:44 98 H 94 03/24/19 02:41 99 H 94 03/24/19 02:38 98 H 94 03/24/19 02:36 99 H 95 03/24/19 02:33 103 H 94 03/24/19 02:31 98 H 95 03/24/19 02:28 101 H 93 03/24/19 02:27 97 H 117/70 03/24/19 02:26 101 H 95 03/24/19 02:21 101 H 95 03/24/19 02:18 73 94 03/24/19 02:16 111 H 94 03/24/19 02:11 102 H 96 03/24/19 02:06 100 H 97 03/24/19 02:01 107 H 97 03/24/19 01:57 96 H 122/73 03/24/19 01:56 112 H 96 03/24/19 01:51 115 H 98 03/24/19 01:46 106 H 97 03/24/19 01:41 107 H 97 03/24/19 01:36 111 H 98 03/24/19 01:31 111 H 98 03/24/19 01:27 117 H 111/66 03/24/19 01:26 112 H 97 03/24/19 01:21 109 H 97 03/24/19 01:16 112 H 98 03/24/19 01:11 107 H 98 03/24/19 01:06 104 H 97 03/24/19 01:01 108 H 96 03/24/19 00:57 105 H 130/79 03/24/19 00:56 106 H 97 03/24/19 00:51 106 H 97 03/24/19 00:46 113 H 98 03/24/19 00:41 115 H 97 03/24/19 00:36 112 H 97 03/24/19 00:31 110 H 98 03/24/19 00:27 105 H 119/68 03/24/19 00:26 110 H 98 03/24/19 00:21 109 H 95 03/24/19 00:19 112 H 93 03/24/19 00:16 106 H 95 03/24/19 00:13 109 H 93 03/24/19 00:11 107 H 95 03/24/19 00:07 111 H 93 03/24/19 00:06 107 H 95 03/24/19 00:01 103 H 94 03/23/19 23:57 104 H 124/76 03/23/19 23:56 116 H 95 03/23/19 23:51 109 H 94 03/23/19 23:50 107 H 94 03/23/19 23:46 107 H 92 03/23/19 23:45 109 H 94 03/23/19 23:41 105 H 94 03/23/19 23:40 111 H 94 03/23/19 23:36 103 H 94 03/23/19 23:35 109 H 94 03/23/19 23:31 107 H 95 03/23/19 23:29 106 H 94 03/23/19 23:27 109 H 120/70 03/23/19 23:26 105 H 95 03/23/19 23:23 109 H 94 03/23/19 23:21 106 H 94 03/23/19 23:18 105 H 94 03/23/19 23:16 105 H 94 03/23/19 23:13 107 H 94 03/23/19 23:11 106 H 94 03/23/19 23:06 107 H 94 03/23/19 23:05 108 H 94 03/23/19 23:01 107 H 95 03/23/19 23:00 108 H 94 03/23/19 22:57 114 H 118/73 03/23/19 22:56 111 H 94 03/23/19 22:55 108 H 94 03/23/19 22:51 109 H 94 03/23/19 22:47 109 H 94 03/23/19 22:46 108 H 94 03/23/19 22:41 104 H 94 03/23/19 22:36 107 H 94 03/23/19 22:35 103 H 94 03/23/19 22:31 106 H 94 03/23/19 22:27 105 H 117/69 93 03/23/19 22:26 105 H 95 03/23/19 22:21 104 H 95 03/23/19 22:20 112 H 93 03/23/19 22:16 104 H 95 03/23/19 22:14 106 H 94 03/23/19 22:11 107 H 95 03/23/19 22:06 108 H 96 03/23/19 22:01 111 H 96 03/23/19 21:58 108 H 122/69 03/23/19 21:56 105 H 95 03/23/19 21:54 105 H 94 03/23/19 21:51 110 H 94 03/23/19 21:49 106 H 94 03/23/19 21:46 105 H 95 03/23/19 21:43 107 H 94 03/23/19 21:41 106 H 95 03/23/19 19:07 98.0 F 105 H 16 127/76 127/76 96 03/23/19 19:06 107 H 96 03/23/19 19:05 99 H 94 03/23/19 19:01 104 H 94 03/23/19 18:58 100 H 121/73 03/23/19 18:57 102 H 94 03/23/19 18:56 102 H 94 03/23/19 18:51 102 H 95 03/23/19 18:46 100 H 96 03/23/19 18:43 106 H 93 03/23/19 18:41 104 H 94 03/23/19 18:36 101 H 94 03/23/19 18:31 108 H 95 03/23/19 18:28 102 H 122/68 94 03/23/19 18:26 98 H 97 03/23/19 18:21 100 H 94 03/23/19 18:20 17 03/23/19 18:16 106 H 94 03/23/19 18:11 109 H 93 03/23/19 18:06 107 H 94 03/23/19 18:04 97 H 94 03/23/19 18:01 103 H 94 03/23/19 17:59 108 H 94 03/23/19 17:57 101 H 130/80 03/23/19 17:56 101 H 95 03/23/19 17:54 104 H 94 03/23/19 17:51 102 H 95 03/23/19 17:46 109 H 96 03/23/19 17:41 106 H 95 03/23/19 17:36 97.1 F L 103 H 95 03/23/19 17:31 102 H 95 03/23/19 17:27 107 H 125/74 93 03/23/19 17:26 104 H 95 03/23/19 17:06 106 H 95 03/23/19 17:01 108 H 96 03/23/19 16:57 106 H 127/74 03/23/19 16:56 112 H 95 03/23/19 16:51 99 H 97 03/23/19 16:45 100 H 133/76 03/23/19 16:34 108 H 96 03/23/19 16:29 100 H 95 03/23/19 16:25 114 H 85 03/23/19 16:24 85 03/23/19 16:03 108 H 100 03/23/19 15:58 117 H 98 03/23/19 15:57 101 H 145/85 03/23/19 15:53 106 H 98 03/23/19 15:48 98 H 100 03/23/19 15:43 102 H 100 03/23/19 15:38 99 H 97 03/23/19 15:33 102 H 98 03/23/19 15:28 91 H 140/81 98 03/23/19 15:23 105 H 99 03/23/19 15:18 98 H 99 03/23/19 15:13 99 H 99 03/23/19 15:08 104 H 99 03/23/19 15:03 97 H 99 03/23/19 14:58 102 H 129/77 99 03/23/19 14:53 103 H 100 03/23/19 14:48 96 H 100 03/23/19 14:43 100 H 100 03/23/19 14:38 91 H 100 03/23/19 14:33 98 H 100 03/23/19 14:28 96 H 122/77 100 03/23/19 14:23 97 H 100 03/23/19 14:18 105 H 100 03/23/19 14:13 97 H 100 03/23/19 14:09 98.1 F 03/23/19 14:08 104 H 97 03/23/19 14:03 100 H 97 03/23/19 13:58 97 H 97 03/23/19 13:57 98 H 119/66 03/23/19 13:53 104 H 95 03/23/19 13:52 97 H 114/59 03/23/19 13:48 95 H 96 03/23/19 13:47 97 H 116/63 03/23/19 13:43 103 H 97 03/23/19 13:42 99 H 119/68 Intake and Output 03/23/19 03/24/19 03/24/19 23:59 07:59 15:59 Intake Total 888.909 1362 Output Total 3500 1900 1050 Balance -3270.833 -900 -1050 Intake: IV 379.634 0040 MAGNESIUM SULFATE 40GM/ 1000 1000ML 40 gm In 1,000 ml @ 2 GM/HR 50 mls/hr IV DIRECT EDIN Rx#:[id number] PITOCin/NS 20 UNIT/1000ML 229.167 DRIP 20 units In 1,000 ml @ 125 mls/hr IV DIRECT EDIN Rx#:[id number] Output: Urine 3500 1900 1050 Indwelling Catheter 3500 1900 1050 Other: Total, Output Amount 250 300 450 Estimated Blood Loss 200 - Exam Breasts: Present: deferred Cardiovascular: Present: Regular rate Lungs: Present: Clear to auscultation Abdomen: Present: normal appearance Vulva: both: normal Uterus: Present: normal, firm, fundal height at umbilicus Extremities: Present: normal Deep Tendon Reflex Grade: Normal +2 - Labs Labs: Abnormal lab results 03/23/19 03/23/19 03/23/19 Range/Units 15:43 19:10 21:33 Magnesium 5.10 H 5.40 H (1.7-2.3) mg/dL Ur Specific [place] 1.002 L (1.003-1.030) 03/24/19 03/24/19 Range/Units 03:40 08:59 Magnesium 5.70 H 6.10 H (1.7-2.3) mg/dL Ur Specific [place] (1.003-1.030)
--- NOTE | 2019-03-25 10:44 | Discharge Summary ---
Providers - Providers Date of Admission: 03/23/19 07:15 Date of discharge: 03/25/19 (1200) Attending physician: ALANA MAHAJAN Primary care physician: ALANA MAHAJAN Hospitalization Reason for admission: active labor, IUP at term Delivery: Episiotomy: none Laceration: none Other procedures: other (Elevated B/Ps) complications: none Discharge diagnosis: other (S/P ; S/P IV magneisum secondary to elevated B/P) baby: female Hospital course: See admission H & P; OB delivery summary and PP progress notes Condition at discharge: Stable Disposition: DC- TO HOME OR SELFCARE Plan - Provider Discharge Summary Activity: routine, no sex for 6 weeks, no heavy lifting 4 weeks, no strenuous exercise Diet: routine Instructions: routine Additional instructions: [] Smoking cessation referral if applicable(refer to patient education folder for contact #) [] Refer to [facility]'s [facility] Booklet Call your doctor immediately for: * Fever > 100.5 * Heavy vaginal bleeding ( >1 pad per hour) * Severe persistent headache * Shortness of breath * Reddened, hot, painful area to leg or breast * F/U at office in 7 days for B/P check * Return to hospital for any severe unrelieved headaches, visual changes or chest pain - Follow up plan Follow up: ALANA MAHAJAN MD [Primary Care Provider] - 7 Days Forms: [facility] Discharge Summary
[2019-03-25 17:08] VITALS: BP 135/85
== END 2019-03-26 02:07 | disposition home or self-care (01) | DRG 806 ==
LOC: TRG 06:04 → LD 07:15 → OB 19:07 → LD 21:36 → OB 03-24 16:53
PROVIDERS: ADMIT Obstetrics & Gynecology; ATTEND Obstetrics & Gynecology
PROC: 10E0XZZ Delivery of Products of Conception, External Approach (ICD-10-PCS; principal; 2019-03-23)
PROC: 3E0R3BZ Introduction of Anesthetic Agent into Spinal Canal, Percutaneous Approach (ICD-10-PCS; 2019-03-23)
PROC: 00HU33Z Insertion of Infusion Device into Spinal Canal, Percutaneous Approach (ICD-10-PCS; 2019-03-23)
PROC: 3E033VJ Introduction of Other Hormone into Peripheral Vein, Percutaneous Approach (ICD-10-PCS; 2019-03-23)
DX: O42.92 Full-term premature rupture of membranes, unspecified as to length of time between rupture and onset of labor (principal); O63.9 Long labor, unspecified; Z37.0 Single live birth; O14.94 Unspecified pre-eclampsia, complicating childbirth; Z82.49 Family history of ischemic heart disease and other diseases of the circulatory system; Z3A.39 39 weeks gestation of pregnancy; Z90.89 Acquired absence of other organs; Z79.899 Other long term (current) drug therapy
CPT/HCPCS: 36415; 80053; 81001; 83615; 83735; 84550; 85014; 85018; 85027; 86850; 86900; 86901; 88307; G0378; A6250; J0290; J0595; J2405; J2590; J3010; J3475; J7120

== ENCOUNTER 2020-08-21 01:52 | Emergency (ER) | payer BC, OTHER ==
[2020-08-21 02:12] VITALS: BP 126/72
--- NOTE | 2020-08-21 04:13 | XRay Report ---
CHEST 2 VIEWS INDICATION / CLINICAL INFORMATION: chest pressure. COMPARISON: Chest radiograph 12/03/2018 FINDINGS: SUPPORT DEVICES: None. HEART / MEDIASTINUM: No significant abnormality. LUNGS / PLEURA: No significant pulmonary or pleural abnormality. No pneumothorax. ADDITIONAL FINDINGS: No significant additional findings. IMPRESSION: 1. No acute findings. Signer Name: Mey Soto MD Signed: 08/21/2020 4:09 AM Workstation Name: [id number]
== END 2020-08-21 07:15 | disposition left against medical advice (07) ==
LOC: ED 01:52
DX: R07.89 Other chest pain (principal); R06.4 Hyperventilation; Z53.21 Procedure and treatment not carried out due to patient leaving prior to being seen by health care provider
CPT/HCPCS: 71046; 93005

== ENCOUNTER 2020-11-24 11:25 | Emergency (ER) | payer OTHER ==
[2020-11-24 12:41] VITALS: BP 124/72
--- NOTE | 2020-11-24 13:23 | Emergency Department Report ---
ED Female HPI - General Chief complaint: Vaginal Bleeding Stated complaint: MISCARRIAGE Source: patient Mode of arrival: Ambulatory Limitations: No Limitations - History of Present Illness Initial comments: 25-year-old female with a past medical history of anemia, hyperlipidemia, tobacco use and marijuana abuse presents to the ER today with complaints of abnormal vaginal bleeding. Patient states that her last normal menstrual cycle was the first week in October 2020 but she started to bleed again towards the end of last week. She states that the bleeding has been light, it did get heavy for 1 day but currently it is light. She states that she has had to use about 3-4 tampons since all the bleeding started. She reports some left-sided abdominal cramping. She is not currently on any control. She has not taken a home test. She has never had to have a blood transfusion for her anemia. She denies any bleeding or clotting disorders. She reports no additional symptoms at this time. Complaint: vaginal bleeding -: week(s) (1) - Related Data Home Medications Medication Instructions Recorded Confirmed Last Taken Multivitamin Tablet 80 mg PO DAILY 03/24/19 03/24/19 Unknown Allergies Allergy/AdvReac Type Severity Reaction Status Date / Time No Known Allergies Allergy Verified 11/24/20 12:36 ED Review of Systems ROS: Stated complaint: MISCARRIAGE Other details as noted in HPI Comment: All other systems reviewed and negative Constitutional: denies: chills, fever Eyes: denies: eye pain, eye discharge, vision change ENT: denies: ear pain, throat pain, dental pain, hearing loss, epistaxis, congestion Respiratory: denies: cough, shortness of breath, wheezing Cardiovascular: denies: chest pain, palpitations, dyspnea on exertion, edema, syncope, paroxysmal nocturnal dyspnea Gastrointestinal: abdominal pain. denies: nausea, vomiting, diarrhea, constipation, hematemesis, melena, hematochezia Genitourinary: abnormal menses. denies: urgency, dysuria, hematuria, discharge, dyspareunia Musculoskeletal: denies: back pain, joint swelling, arthralgia Skin: denies: rash, lesions, change in color, change in hair/nails, pruritus Neurological: denies: headache, weakness, numbness, paresthesias, confusion, abnormal gait, vertigo Psychiatric: denies: anxiety, depression, homicidal thoughts, suicidal thoughts Hematological/Lymphatic: denies: easy bleeding, easy bruising ED Past Medical Hx - Past Medical History Hx Hypertension: No Hx Congestive Heart Failure: No Hx Diabetes: No Hx Deep Vein Thrombosis: No Hx Renal Disease: No Hx Sickle Cell Disease: No Hx Seizures: No Hx Psychiatric Treatment: Yes (Panic Attack/ DEPRESSION) Hx Asthma: No Hx COPD: No Hx HIV: No - Surgical History Additional Surgical History: tonsillectomy, herniA - Social History Smoking Status: Never Smoker Substance Use Type: Marijuana - Medications Home Medications: Home Medications Medication Instructions Recorded Confirmed Last Taken Type Multivitamin Tablet 80 mg PO DAILY 03/24/19 03/24/19 Unknown History ED Physical Exam - General Limitations: No Limitations General appearance: alert, in no apparent distress - Head Head exam: Present: atraumatic, normocephalic, normal inspection - Eye Eye exam: Present: normal appearance, PERRL, EOMI Pupils: Present: normal accommodation - ENT ENT exam: Present: normal exam, mucous membranes moist, TM's normal bilaterally - Neck Neck exam: Present: normal inspection, full ROM - Respiratory Respiratory exam: Present: normal lung sounds bilaterally. Absent: respiratory distress - Cardiovascular Cardiovascular Exam: Present: regular rate, normal rhythm, normal heart sounds - GI/Abdominal GI/Abdominal exam: Present: soft. Absent: distended, tenderness, guarding, rebound - Neurological Exam Neurological exam: Present: alert, oriented X3, CN II-XII intact, normal gait - Psychiatric Psychiatric exam: Present: normal affect, normal mood - Skin Skin exam: Present: intact ED Course Vital Signs 11/24/20 12:40 Temperature 99.2 F Pulse Rate 56 L Respiratory 20 Rate Blood Pressure 124/72 O2 Sat by Pulse 100 Oximetry ED Medical Decision Making - Lab Data Result diagrams: 11/24/20 14:25 11/24/20 14:25 - Medical Decision Making I Went to find patient to review her results with her. But triage nurse informed me that around 1430 patient had walked out stating that she cannot wait any longer. I was not notified the patient was leaving. AMA was not signed. Patient apparently eloped prior to me being able to review her test results and give her discharge instructions. Critical care attestation.: If time is entered above; I have spent that time in minutes in the direct care of this critically ill patient, excluding procedure time. ED Disposition Clinical Impression: Abnormal vaginal bleeding Disposition: Z-07 ELOPED Is pt being admited?: No Condition: Stable
[2020-11-24 14:44] LABS: Basophils % (Auto) 0.3 % (0.0-1.8); Eosinophils # (Auto) 0.1 K/mm3 (0.0-0.4); Eosinophils % (Auto) 0.7 % (0.0-4.3); Hematocrit 41.2 % (30.3-42.9); Hemoglobin 13.8 gm/dl (10.1-14.3); Lymphocytes # (Auto) 2.2 K/mm3 (1.2-5.4); Lymphocytes % (Auto) 25.7 % (13.4-35.0); Mean Corpuscular HGB Conc 34 % (30-34); Mean Corpuscular Volume 94 fl (79-97); Monocytes # (Auto) 0.5 K/mm3 (0.0-0.8); Monocytes % (Auto) 5.4 % (0.0-7.3); Platelet Count 261 K/mm3 (140-440); Red Cell Distribution Width 13.9 % (13.2-15.2)
[2020-11-24 15:06] LABS: Alanine Aminotransferase 9 units/L (7-56); Albumin 4.4 g/dL (3.9-5)
[2020-11-24 15:17] LABS: Bilirubin,Urine NEG (Negative); Blood,Urine NEG (Negative); Color,Urine Yellow (Yellow); Mucus,Urine 3+ /HPF
[2020-11-24 15:20] LABS: Blood Urea Nitrogen 10 mg/dL (7-17); Calcium 8.9 mg/dL (8.4-10.2); Hemolysis Index 4
[2020-11-24 15:22] LABS: BUN/Creatinine Ratio 14
== END 2020-11-24 14:30 | disposition left against medical advice (07) ==
LOC: ED 11:25
DX: N93.9 Abnormal uterine and vaginal bleeding, unspecified (principal); F32.9 Major depressive disorder, single episode, unspecified; F12.90 Cannabis use, unspecified, uncomplicated; Z90.89 Acquired absence of other organs; Z79.899 Other long term (current) drug therapy
CPT/HCPCS: 36415; 80053; 81001; 84703; 85025; 99283

== ENCOUNTER 2021-07-23 19:07 | Emergency (ER) | payer OTHER ==
[2021-07-23 19:32] VITALS: BP 101/57
[2021-07-23] MEDS: TETANUS,DIPHTHERIA TOXOID ADULT 0.5 ML INJ IM ONE ×2 (20:19→21:04)
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
--- NOTE | 2021-07-23 20:28 | XRay Report ---
CHEST 1 VIEW, 07/23/2021 7:09 PM CLINICAL INFORMATION/INDICATION: Shortness of breath COMPARISON: Chest radiograph, 08/21/2020 FINDINGS: SUPPORT DEVICES: None. HEART: The cardiac silhouette is normal in size. LUNGS/PLEURA: The lungs are clear of focal airspace disease or significant pleural effusion. ADDITIONAL FINDINGS: No additional acute findings. IMPRESSION: 1. No evidence of acute cardiopulmonary process. Signer Name: Felicia German MD Signed: 07/23/2021 8:23 PM Workstation Name: [id number]
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
== END 2021-07-23 21:03 | disposition home or self-care (01) ==
LOC: ED 19:07
DX: S01.01XA Laceration without foreign body of scalp, initial encounter (principal); I10 Essential (primary) hypertension; F32.9 Major depressive disorder, single episode, unspecified; Z90.89 Acquired absence of other organs; Z79.899 Other long term (current) drug therapy; V87.7XXA Person injured in collision between other specified motor vehicles (traffic), initial encounter; Y93.89 Activity, other specified; Y92.488 Other paved roadways as the place of occurrence of the external cause; Y99.8 Other external cause status
CPT/HCPCS: 70450; 71045; 72125; 90714; 99284

== ENCOUNTER 2021-12-17 12:15 | Emergency (ER) | payer OTHER ==
--- NOTE | 2021-12-17 14:07 | Emergency Department Report ---
Chief Complaint: Vaginal Bleeding Stated Complaint: LOWER ABD PAIN/BLEEDING - HPI History of Present Illness: 26-year-old female presents with lower abdominal pain and vaginal bleeding that began this morning, states has not changed pad since arrival to ED, unable to state how many pads saturated in an hour - ROS Review of Systems: Vaginal bleeding and lower abdominal pain - Exam Vital Signs: Vital Signs 12/17/21 13:58 Temperature 98.4 F Pulse Rate 74 Respiratory 18 Rate Blood Pressure 116/80 [Left] O2 Sat by Pulse 100 Oximetry Physical Exam: Alert and oriented x4. Nonlabored breathing MSE screening note: Focused history and physical exam performed. Due to findings the following was ordered: Orders have been placed. Patient to be seen and further evaluated in the back by another provider. MSE complete My Active Orders 12/17/21 14:03 Type and Screen Stat Complete Blood Count Auto Diff Stat Comprehensive Metabolic Panel Stat US pelvic complete Stat US transvaginal Urgent 12/17/21 14:04 US Bladder Residual/Pelvic Pre ROUTINE HCG Qualitative, Serum Stat ED Disposition for MSE Condition: Stable
--- NOTE | 2021-12-17 15:07 | Ultrasound Report ---
ULTRASOUND PELVIS INDICATION: vaginal bleeding. TECHNIQUE: Transabdominal and Transvaginal. Duplex Color Doppler used: Yes. COMPARISON: None available FINDINGS: Uterus: Present. Size: 7.3 x 4 x 4.7 cm. Endometrial complex: Thickened and mildly complex measuring 0.9 cm. Mass lesions: None. Additional findings: None. Right Ovary -- Normal. Blood flow: Normal. Cyst or mass: None. Left Ovary-- Normal. Blood flow: Normal. Cyst or mass: None. Urinary Bladder: Normal. Free Fluid: None. Additional Findings: None. IMPRESSION: 1. Thickened and mildly complex endometrium measuring 0.9 cm. 2. No adnexal abnormality. Signer Name: Burak Grewal MD Signed: 12/17/2021 3:02 PM Workstation Name: [id number]
[2021-12-17 16:05] LABS: Basophils % (Auto) 0.3 % (0.0-1.8); Eosinophils % (Auto) 0.4 % (0.0-4.3); Hematocrit 42.1 % (30.3-42.9); Lymphocytes # (Auto) 1.6 K/mm3 (1.2-5.4); Mean Corpuscular HGB Conc 33 % (30-34); Mean Corpuscular Volume 93 fl (79-97); Monocytes # (Auto) 0.8 K/mm3 (0.0-0.8); Monocytes % (Auto) 7.1 % (0.0-7.3); Platelet Count 279 K/mm3 (140-440); Red Blood Count 4.52 M/mm3 (3.65-5.03); Red Cell Distribution Width 13.8 % (13.2-15.2)
[2021-12-17 16:09] LABS: Alanine Aminotransferase 11 units/L (7-56); Albumin 4.8 g/dL (3.9-5); Blood Urea Nitrogen 9 mg/dL (7-17); Calcium 9.6 mg/dL (8.4-10.2); Hemolysis Index 3
[2021-12-17 16:12] LABS: Mucus,Urine 3+ /HPF
[2021-12-17 16:16] LABS: Color,Urine Straw (Yellow)
[2021-12-17 16:25] LABS: BUN/Creatinine Ratio 13
--- NOTE | 2021-12-17 17:04 | Emergency Department Report ---
ED Female HPI - General Chief complaint: Vaginal Bleeding Stated complaint: LOWER ABD PAIN/BLEEDING Source: patient Mode of arrival: Wheelchair Limitations: No Limitations - History of Present Illness Initial comments: 26-year-old female presents to the ED complaining vaginal bleeding x1 day. Patient states that her last menstrual cycle was November. Patient states that she awakened a.m. with abdominal cramping and vaginal bleeding. Patient states that she has used 1 pad since this a.m. patient denies any nausea vomiting at present time. Patient denies any dizziness at present time. Patient is alert and oriented x3. No acute distress noted. No ill appearance noted MD Complaint: vaginal bleeding -: This morning Severity scale (0 -10): 3 Quality: cramping Consistency: constant Improves with: none Are you Now?: No Associated Symptoms: vaginal bleeding - Related Data Home Medications Medication Instructions Recorded Confirmed Last Taken Multivitamin Tablet 80 mg PO DAILY 03/24/19 03/24/19 Unknown Previous Rx's Medication Instructions Recorded Last Taken Type Naproxen [Naprosyn] 500 mg PO BID 15 Days #30 tablet 12/17/21 Unknown Rx traMADoL [Ultram] 50 mg PO Q4HR PRN 3 Days #12 tablet 12/17/21 Unknown Rx Allergies Allergy/AdvReac Type Severity Reaction Status Date / Time No Known Allergies Allergy Verified 07/23/21 19:26 ED Review of Systems ROS: Stated complaint: LOWER ABD PAIN/BLEEDING Other details as noted in HPI Constitutional: denies: chills, fever Eyes: denies: eye pain, eye discharge, vision change ENT: denies: ear pain, throat pain Respiratory: denies: cough, shortness of breath, wheezing Cardiovascular: denies: chest pain, palpitations Endocrine: no symptoms reported Gastrointestinal: denies: abdominal pain, nausea, diarrhea Genitourinary: abnormal menses. denies: urgency, dysuria, discharge Musculoskeletal: denies: back pain, joint swelling, arthralgia Skin: denies: rash, lesions Neurological: denies: headache, weakness, paresthesias Psychiatric: denies: anxiety, depression Hematological/Lymphatic: denies: easy bleeding, easy bruising ED Past Medical Hx - Past Medical History Hx Hypertension: Yes Hx Congestive Heart Failure: No Hx Diabetes: No Hx Deep Vein Thrombosis: No Hx Renal Disease: No Hx Sickle Cell Disease: No Hx Seizures: No Hx Psychiatric Treatment: Yes (Panic Attack/ DEPRESSION) Hx Asthma: No Hx COPD: No Hx HIV: No - Surgical History Additional Surgical History: tonsillectomy, herniA - Social History Smoking Status: Never Smoker Substance Use Type: None - Medications Home Medications: Home Medications Medication Instructions Recorded Confirmed Last Taken Type Multivitamin Tablet 80 mg PO DAILY 03/24/19 03/24/19 Unknown History Naproxen [Naprosyn] 500 mg PO BID 15 Days #30 tablet 12/17/21 Unknown Rx traMADoL [Ultram] 50 mg PO Q4HR PRN 3 Days #12 tablet 12/17/21 Unknown Rx ED Physical Exam - General Limitations: No Limitations General appearance: alert, in no apparent distress - Head Head exam: Present: atraumatic, normocephalic - Eye Eye exam: Present: normal appearance - ENT ENT exam: Present: mucous membranes moist - Neck Neck exam: Present: normal inspection - Respiratory Respiratory exam: Present: normal lung sounds bilaterally. Absent: respiratory distress - Cardiovascular Cardiovascular Exam: Present: regular rate, normal rhythm. Absent: systolic murmur, diastolic murmur, rubs, gallop - GI/Abdominal GI/Abdominal exam: Present: soft, normal bowel sounds - Extremities Exam Extremities exam: Present: normal inspection - Back Exam Back exam: Present: normal inspection - Neurological Exam Neurological exam: Present: alert, oriented X3 - Psychiatric Psychiatric exam: Present: normal affect, normal mood - Skin Skin exam: Present: warm, dry, intact, normal color. Absent: rash ED Course Vital Signs 12/17/21 12/17/21 13:58 17:19 Temperature 98.4 F Pulse Rate 74 92 H Respiratory 18 18 Rate Blood Pressure 116/80 129/80 [Left] O2 Sat by Pulse 100 100 Oximetry ED Medical Decision Making - Lab Data Result diagrams: 12/17/21 14:50 12/17/21 14:50 - Radiology Data [facility] [address] [place] [address] Ultrasound Report Signed Patient: IRA WYNNE MR #: [id number] : 1995 Acct:[id number] Age/Sex: 26 / F ADM Date: 12/17/21 Loc: ED Attending Dr: Ordering Physician: MARCY DESOUZA NP Date of Service: 12/17/21 Procedure(s): US transvaginal Accession Number(s): [id number] cc: MARCY DESOUZA NP ULTRASOUND PELVIS INDICATION: vaginal bleeding. TECHNIQUE: Transabdominal and Transvaginal. Duplex Color Doppler used: Yes. COMPARISON: None available FINDINGS: Uterus: Present. Size: 7.3 x 4 x 4.7 cm. Endometrial complex: Thickened and mildly complex measuring 0.9 cm. Mass lesions: None. Additional findings: None. Right Ovary -- Normal. Blood flow: Normal. Cyst or mass: None. Left Ovary-- Normal. Blood flow: Normal. Cyst or mass: None. Urinary Bladder: Normal. Free Fluid: None. Additional Findings: None. IMPRESSION: 1. Thickened and mildly complex endometrium measuring 0.9 cm. 2. No adnexal abnormality. Signer Name: Burak Grewal MD Signed: 12/17/2021 3:02 PM Workstation Name: [id number] Transcribed By: ES Dictated By: Burak Grewal MD Electronically Authenticated By: Burak Grewal MD Signed Date/Time: 12/17/21 150 DD/ 1501 TD/TT: - Medical Decision Making 26-year-old female presents to the ED complaining vaginal bleeding x1 day. Patient states that her last menstrual cycle was November. Patient states that she awakened a.m. with abdominal cramping and vaginal bleeding. Patient sta koby that she has used 1 pad since this a.m. patient denies any nausea vomiting at present time. Patient denies any dizziness at present time. Patient is alert and oriented x3. No acute distress noted. No ill appearance noted. Ultrasound showed thickening of the endometrial is 0.9mm. Physical examination is unremarkable. Patient and partner was resting with her eyes closed at time of discharge. Patient did not complain of pain Rechecked the patient is resting quietly , comfortable and feeling better. I discussed the results of diagnostic study, my clinical impression and the plan for further treatment with the patient. Patient agrees with plan and discharge at this present time. All question addressed. I have given the patient instruction regarding a diagnosis ,expectation ,follow- up and return precaution. I explained to the patient that emergent condition may arise and to return to the ED for new worsen and any new persisting condition. I have explained the importance of following up with the primary care physician or referral physician listed below has instructed. The patient verbalized understanding of discharge instruction. Abnormal Lab Results 12/17/21 12/17/21 12/17/21 14:50 14:50 14:50 WBC 11.1 H RBC 4.52 Hgb 14.0 Hct 42.1 MCV 93 MCH 31 MCHC 33 RDW 13.8 Plt Count 279 Lymph % (Auto) 14.0 [place] % (Auto) 7.1 Eos % (Auto) 0.4 Baso % (Auto) 0.3 Lymph # (Auto) 1.6 [place] # (Auto) 0.8 Eos # (Auto) 0.0 Baso # (Auto) 0.0 Seg Neutrophils % 78.2 H Seg Neutrophils # 8.7 H Sodium 141 Potassium 3.7 Chloride 103.0 Carbon Dioxide 25 Anion Gap 17 BUN 9 Creatinine 0.7 Estimated GFR > 60 BUN/Creatinine Ratio 13 Glucose 78 Calcium 9.6 Total Bilirubin 0.70 AST 19 ALT 11 Alkaline Phosphatase 73 Total Protein 7.4 Albumin 4.8 Albumin/Globulin Ratio 1.8 HCG, Qual Urine Color Urine Turbidity Specific [place] (Man) Ur Protein (Man) Ur Ketones (Man) Ur Nitrite (Man) Ur Reducing Substances Urine Bilirubin (Man) Urine Ictotest Leukocyte Esterase (Man) Urine WBC (Auto) Urine RBC (Auto) U Epithel Cells (Auto) Urine RBC (Manual) Urine Mucus Blood Type A POSITIVE Antibody Screen Negative 12/17/21 12/17/21 14:50 Unknown WBC RBC Hgb Hct MCV MCH MCHC RDW Plt Count Lymph % (Auto) [place] % (Auto) Eos % (Auto) Baso % (Auto) Lymph # (Auto) [place] # (Auto) Eos # (Auto) Baso # (Auto) Seg Neutrophils % Seg Neutrophils # Sodium Potassium Chloride Carbon Dioxide Anion Gap BUN Creatinine Estimated GFR BUN/Creatinine Ratio Glucose Calcium Total Bilirubin AST ALT Alkaline Phosphatase Total Protein Albumin Albumin/Globulin Ratio HCG, Qual Negative Urine Color Straw Urine Turbidity Hazy Specific [place] (Man) 1.025 Ur Protein (Man) 1+ Ur Ketones (Man) 80 Ur Nitrite (Man) Negative Ur Reducing Substances Not Reportable Urine Bilirubin (Man) Negative Urine Ictotest Not Reportable Leukocyte Esterase (Man) Negative Urine WBC (Auto) 4.0 Urine RBC (Auto) 49.0 U Epithel Cells (Auto) 6.0 Urine RBC (Manual) 3+ Urine Mucus 3+ Blood Type Antibody Screen Critical care attestation.: If time is entered above; I have spent that time in minutes in the direct care of this critically ill patient, excluding procedure time. ED Disposition Clinical Impression: Endometriosis Heavy menstrual bleeding Qualifiers: Menorrhagia type: with regular cycle Qualified Code(s): N92.0 - Excessive and frequent menstruation with regular cycle Disposition: HOME / SELF CARE / HOMELESS Is pt being admited?: No Does the pt Need Aspirin: No Condition: Stable Instructions: Endometriosis, Menorrhagia, [id number] Additional Instructions: Take medication as prescribe Return to the ED for any worsening symptom Prescriptions: Naproxen [Naprosyn] 500 mg PO BID 15 Days #30 tablet traMADoL [Ultram] 50 mg PO Q4HR PRN 3 Days #12 tablet PRN Reason: Pain Referrals: [facility] [Provider Group] - 3-5 Days Forms: Work/School Release Form(ED) Time of Disposition: 17:08
[2021-12-17 17:20] VITALS: BP 129/80
== END 2021-12-17 17:35 | disposition home or self-care (01) ==
LOC: ED 12:15
DX: N80.9 Endometriosis, unspecified (principal); N92.0 Excessive and frequent menstruation with regular cycle; I10 Essential (primary) hypertension
CPT/HCPCS: 36415; 76830; 76856; 80053; 81001; 84703; 85025; 86850; 86900; 86901; 99283; 99284